=== PATIENT | female | born 1960 | race Caucasian/White ===

== ENCOUNTER 2017-04-10 18:23 | Emergency (ER) | payer MEDICARE, OTHER ==
[~2017-04-10] VITALS: Ht 157.5 cm; Wt 62.5 kg
[2017-04-10 18:31] VITALS: Ht 157.5 cm; Wt 62.5 kg
[2017-04-10] MEDS ORDERED: AMOX1TAB10 PO (18:48)
--- NOTE | 2017-04-10 18:53 | ERD ---
ER Documentation Chief Complaint Date/Time DATE: 04/10/17 TIME: 18:50 Chief Complaint dog bite today by own puppy - swollen right hand no bleeding HPI This 56-year-old female presents to the emergency department today for right hand swelling after being bitten by her Labrador puppy approximately 1 hour prior to arrival. Denies any pain, fevers or chills. States she is not up-to- date on her tetanus. Denies any previous trauma. ROS All systems reviewed and are negative except as per history of present illness. Medications Home Meds Active Scripts Amoxicillin/Potassium Clav (Amox-Clav 875-125 mg Tablet) 875-125 mg Tab, 1 TAB PO BID for 7 Days, #14 TAB Prov:STEF BARRIOS PA-C 04/10/17 PMhx/Soc History of Surgery: No Anesthesia Reaction: No Hx Neurological Disorder: No Hx Respiratory Disorders: No Hx Cardiac Disorders: No Hx Psychiatric Problems: Yes (DEPRESSION AND ANXIETY.) Hx Miscellaneous Medical Probl: No Hx Alcohol Use: No Hx Substance Use: No Hx Tobacco Use: Yes Smoking Status: Current every day smoker Physical Exam Vitals Vital Signs Date Time Temp Pulse Resp B/P Pulse Ox O2 Delivery O2 Flow Rate FiO2 04/10/17 18:31 98.8 93 18 143/88 98 Physical Exam Const: No acute distress Head: Atraumatic Eyes: Normal Conjunctiva ENT: Normal External Ears, Nose and Mouth. Neck: Full range of motion..~ No meningismus. Resp: Clear to auscultation bilaterally Cardio: Regular rate and rhythm, no murmurs Skin: Right hand and right dorsal forearm with evidence of small bite wounds. Evidence of large hematoma dorsal aspect right hand. Pulses 2+. Distal neurovascularly intact per Back: No midline or flank tenderness Ext: No cyanosis, or edema Neur: Awake and alert Psych: Normal Mood and Affect Results 24 hrs Current Medications Medications (Trade) Dose Ordered Sig/Alba Route PRN Reason Start Time Stop Time Status Last Admin Dose Admin Diphtheria/ Tetanus/Acell Pertussis (Adacel) 0.5 ml ONCE ONCE IM* 04/10/17 19:00 04/10/17 19:01 Procedures/MDM This a 56-year-old female who presents to the emergency department today for right hand swelling after being bit by her Labrador puppy earlier today. Patient did have a significant hematoma on the posterior aspect of her right hand. She did indicate that she was taking aspirin. Do not feel the patient requires laboratory workup or imaging at this time. She was not up-to-date on her tetanus. She was given tetanus vaccine here in the emergency department. Low suspicion for cellulitis, sepsis, deep space infection. Patient is nontender on her bones no low suspicion for acute fracture dislocation. His wounds were dressed here in the emergency department. There was a compression dressing placed on the patient and she was given a prescription for Augmentin for home. She is instructed to return in 48 hours for a wound check if no improvement in symptoms or worsening of symptoms. Patient understood and agreed with the plan. At this time the patient is stable for discharge and outpatient management. Patient should follow up with their PCP in the next 1-2 days. They may return to the emergency department sooner for any persistent or worsening of symptoms. Patient understood and agreed with the plan. Dr. Emery has seen and evaluated the patient and he is in agreement with the plan. Departure Diagnosis: Primary Impression: Dog bite Encounter type: initial encounter Qualified Code: W54.0XXA - Dog bite, initial encounter Additional Impression: Hematoma Condition: Fair Patient Instructions: Dog Bite, Hematoma Referrals: your PCP Additional Instructions: Call your primary care doctor TOMORROW for an appointment during the next 1-2 days.See the doctor sooner or return here if your condition worsens before your appointment time. Take antibiotics as prescribed Wound check in 48 hours if no improvement or worsening of symptoms Apply compression to hematoma STEF BARRIOS PA-C Apr 10, 2017 18:52
[2017-04-10] MEDS ORDERED: DIPHTH/TET/ACEL PERTUSS (ADULT) 0.5 ML VIAL IM* ONE (19:00)
== END 2017-04-10 19:10 | disposition home or self-care (01) ==
LOC: FTE 18:23
DX: S61.451A Open bite of right hand, initial encounter (principal); S60.221A Contusion of right hand, initial encounter; F17.210 Nicotine dependence, cigarettes, uncomplicated; W54.0XXA Bitten by dog, initial encounter; Y92.9 Unspecified place or not applicable; Z23 Encounter for immunization
CPT/HCPCS: 90471; 90715